=== PATIENT | male | born 1990 | race Caucasian/White ===

== ENCOUNTER 2017-12-28 18:41 | Emergency (ER) | payer MEDICAID ==
[2017-12-28] MEDS ORDERED: HYDROmorphone 2 MG/ML SDV IVPUSH ONE (18:55)
[2017-12-28] MEDS ORDERED: Ondansetron 4 MG/2 ML SDV IVPUSH ONE (18:55)
[2017-12-28] MEDS ORDERED: HYDROmorphone 2 MG/ML SDV ONE (18:56)
[2017-12-28] MEDS ORDERED: Ondansetron 4 MG/2 ML SDV ONE (18:56)
[2017-12-28] MEDS ORDERED: Sodium Chloride 0.9% 1,000 ML IV ONE (19:00)
[2017-12-28] MEDS ORDERED: Diphtheria,Pertussis(Acell),Tetanus Vaccine 0.5 ML SDV IM ONE (19:11)
[2017-12-28] MEDS ORDERED: Acetaminophen/HYDROcodone 325-5 MG Tab PO ONE (20:49)
== END 2017-12-28 21:00 | disposition home or self-care (01) ==
LOC: FB.ED 18:41
DX: T20.26XA Burn of second degree of forehead and cheek, initial encounter (principal); T23.162A Burn of first degree of back of left hand, initial encounter; T22.112A Burn of first degree of left forearm, initial encounter; Z23 Encounter for immunization; X08.8XXA Exposure to other specified smoke, fire and flames, initial encounter
CPT/HCPCS: 90471; 90715; 96361; 96374; 96375; 99283; J1170; J2405; J7030; A9270-GY

== ENCOUNTER 2018-10-06 13:56 | Emergency (ER) | payer SELFPAY ==
--- NOTE | 2018-10-06 14:09 | EDM.PDOCBH ---
ED HPI GENERAL MEDICAL PROBLEM - General Stated Complaint: ANXITY Time Seen by Provider: 10/06/18 14:03 Source of Information: Reports: Patient History Limitations: Reports: Other (anxiety) - History of Present Illness INITIAL COMMENTS - FREE TEXT/NARRATIVE: 27 y.o.w.m came to the ed after he was evicted from the apartment he lived with is girlfriend. There was a verbal argument on Thursday, his son's grandpa arrived , police was called and he had to leave the apartment. Pt was so upset, having suicidal thoughts. A [employer] member brought him to the ED. Pt denied any physical issue but a few "bumps on his skin" which is there for quite some time. No CP.No SOB, No N/V/D or any other acute medical issues. BP 142/83 RR 18 Pulse ox 97% on RA Temp 36.7 Pulse 84 Onset: Today Onset Date: 10/06/18 Onset Time: 10:00 Duration: Hour(s): Location: Reports: Generalized Quality: Reports: Other Severity: Moderate Improves with: Reports: None Worsens with: Reports: None Context: Reports: Other - Related Data Allergies Allergy/AdvReac Type Severity Reaction Status Date / Time No Known Allergies Allergy Verified 10/06/18 14:05 Home Meds: Home Meds NK [No Known Home Meds] 12/28/17 [History] Past Medical History Psychiatric History: Reports: ADD, Anxiety, Depression, Psych Hospitalization(s) , Suicide Attempt - Infectious Disease History Infectious Disease History: Reports: Chicken Pox Social & Family History - Family History Family Medical History: Noncontributory - Caffeine Use Caffeine Use: Reports: Coffee, Soda, Tea ED ROS GENERAL - Review of Systems Review Of Systems: See Below Constitutional: Reports: No Symptoms HEENT: Reports: No Symptoms Respiratory: Reports: No Symptoms Cardiovascular: Reports: No Symptoms Endocrine: Reports: No Symptoms GI/Abdominal: Reports: No Symptoms : Reports: No Symptoms Musculoskeletal: Reports: No Symptoms Skin: Reports: No Symptoms Neurological: Reports: No Symptoms Psychiatric: Reports: Anxiety, Suicidal Ideation Hematologic/Lymphatic: Reports: No Symptoms Immunologic: Reports: No Symptoms ED EXAM, BEHAVIORAL HEALTH - Physical Exam Exam: See Below Exam Limited By: No Limitations General Appearance: Alert, WD/WN, Anxious, Mild Distress Eye Exam: Bilateral Eye: Normal Inspection Ears: Normal External Exam Nose: Normal Inspection, Normal Mucosa, No Blood Throat/Mouth: Normal Inspection, Normal Lips, Normal Voice, No Airway Compromise Head: Atraumatic, Normocephalic Neck: Normal Inspection, Supple Respiratory/Chest: No Respiratory Distress, Lungs Clear, Normal Breath Sounds, No Accessory Muscle Use, Chest Non-Tender Cardiovascular: Normal Peripheral Pulses, Regular Rate, Rhythm, No Edema, No Gallop, No JVD, No Murmur GI/Abdominal: Normal Bowel Sounds, Soft, Non-Tender, No Organomegaly, No Abnormal Bruit, No Mass, Pelvis Stable (Male) Exam: No Hernia Rectal (Males) Exam: Deferred Back Exam: Normal Inspection, Full Range of Motion Extremities: Normal Inspection, Normal Range of Motion, Non-Tender, No Pedal Edema Neurological: Alert, Normal Mood/Affect, CN II-XII Intact, Normal Cognition, Normal Reflexes, No Motor/Sensory Deficits, Oriented x 3 Psychiatric: Oriented, Restless, Agitated Skin Exam: Warm, Dry, Intact, Normal color, No rash COURSE, BEHAVIORAL HEALTH COMP - Course Vital Signs: Last Vital Signs Temp 36.8 C 10/06/18 14:01 Pulse 94 10/06/18 14:01 Resp 18 10/06/18 14:01 BP 142/83 H 10/06/18 14:01 Pulse Ox 97 10/06/18 14:01 27 y.o.w.m came to the ed after he was evicted from the apartment he lived with is girlfriend. There was a verbal argument on Thursday, his son's grandpa arrived , police was called and he had to leave the apartment. Pt was so upset, having suicidal thoughts. A [employer] member brought him to the ED. Pt denied any physical issue but a few "bumps on his skin" which is there for quite some time.Pt stated he has no family to go to. No CP.No SOB, No N/V/D or any other acute medical issues. BP 142/83 RR 18 Pulse ox 97% on RA Temp 36.7 Pulse 84 PE: This [facility] W Male in [facility] Labs: CBC BMP nl BMP nl UDS pos for Salicylate and Marijuana .Glc was 78 Impression: Suicidal ideation, Anxiety Tx: None 14.56 Evaluation by Tele Psych 15.45 Pt was accepted at [facility] by Dr. Sherman, Psychiatrist Reexam: Pt was doing fine here in the ED Plan: transfer to [facility] Orders, Labs, Meds: Laboratory Tests 10/06/18 10/06/18 10/06/18 Range/Units 14:20 14:20 14:20 WBC 9.2 (4.5-12.0) X10-3/uL RBC 5.78 H (4.30-5.75) x10(6)uL Hgb 17.3 (13.5-17.8) g/dL Hct 50.4 (30.0-51.3) % MCV 87.1 (80-96) fL MCH 29.9 (27.7-33.6) pg MCHC 34.3 (32.2-35.4) g/dL RDW 11.0 L (11.5-15.5) % Plt Count 294 (125-369) X10(3)uL MPV 8.8 (7.4-10.4) fL Add Manual Diff Yes Neutrophils % (Manual) 86 H (46-82) % Lymphocytes % (Manual) 13 (13-37) % Monocytes % (Manual) 1 L (4-12) % Sodium 139 (135-145) mmol/L Potassium 4.4 (3.5-5.3) mmol/L Chloride 101 (100-110) mmol/L Carbon Dioxide 25 (21-32) mmol/L BUN 17 (7-18) mg/dL Creatinine 1.0 (0.70-1.30) mg/dL Est Cr Clr Drug Dosing 110.34 mL/min Estimated GFR (MDRD) > 60 (>60) BUN/Creatinine Ratio 17.0 (9-20) Glucose 78 L (80-116) mg/dL Calcium 9.4 (8.6-10.2) mg/dL TSH, Ultra Sensitive 1.21 (0.36-3.74) IU/mL Salicylates 3.3 (<2.8) mg/dL Urine Opiates Screen (NEGATIVE) Ur Oxycodone Screen (NEGATIVE) Ur Propoxyphene Screen (NEGATIVE) Acetaminophen < 2 L (<2) ug/mL Ur Barbituates Screen (NEGATIVE) Ur Tricyclics Screen (NEGATIVE) Ur Phencyclidine Scrn (NEGATIVE) Ur Amphetamine Screen (NEGATIVE) Urine MDMA Screen (NEGATIVE) U Benzodiazepines Scrn (NEGATIVE) U Cocaine Metab Screen (NEGATIVE) U Marijuana (THC) Screen (NEGATIVE) Ethyl Alcohol < 0.03 (<0.03) % 10/06/18 Range/Units 14:32 WBC (4.5-12.0) X10-3/uL RBC (4.30-5.75) x10(6)uL Hgb (13.5-17.8) g/dL Hct (30.0-51.3) % MCV (80-96) fL MCH (27.7-33.6) pg MCHC (32.2-35.4) g/dL RDW (11.5-15.5) % Plt Count (125-369) X10(3)uL MPV (7.4-10.4) fL Add Manual Diff Neutrophils % (Manual) (46-82) % Lymphocytes % (Manual) (13-37) % Monocytes % (Manual) (4-12) % Sodium (135-145) mmol/L Potassium (3.5-5.3) mmol/L Chloride (100-110) mmol/L Carbon Dioxide (21-32) mmol/L BUN (7-18) mg/dL Creatinine (0.70-1.30) mg/dL Est Cr Clr Drug Dosing mL/min Estimated GFR (MDRD) (>60) BUN/Creatinine Ratio (9-20) Glucose (80-116) mg/dL Calcium (8.6-10.2) mg/dL TSH, Ultra Sensitive (0.36-3.74) IU/mL Salicylates (<2.8) mg/dL Urine Opiates Screen Negative (NEGATIVE) Ur Oxycodone Screen Negative (NEGATIVE) Ur Propoxyphene Screen Negative (NEGATIVE) Acetaminophen (<2) ug/mL Ur Barbituates Screen Negative (NEGATIVE) Ur Tricyclics Screen Negative (NEGATIVE) Ur Phencyclidine Scrn Negative (NEGATIVE) Ur Amphetamine Screen Negative (NEGATIVE) Urine MDMA Screen Negative (NEGATIVE) U Benzodiazepines Scrn Negative (NEGATIVE) U Cocaine Metab Screen Negative (NEGATIVE) U Marijuana (THC) Screen Positive H (NEGATIVE) Ethyl Alcohol (<0.03) % Departure - Departure Time of Disposition: 16:15 Disposition: DC/Tfer to Psych Hosp/Unit 65 Condition: Fair Clinical Impression: Suicidal ideation - Discharge Information Referrals: PCP,None [Primary Care Provider] -
[2018-10-06 14:33] LABS: ACETAMINOPHEN < 2 ug/mL (<2)
== END 2018-10-06 16:22 ==
LOC: FB.ED 13:56
DX: R45.851 Suicidal ideations (principal); F41.9 Anxiety disorder, unspecified
CPT/HCPCS: 36415; 80048; 80305-QW; 84443; 85025; 99284; 99285; G0480